=== PATIENT | male | born 1980 ===

== ENCOUNTER 2016-09-21 01:02 | Emergency (ER) | payer SELFPAY ==
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
[2016-09-21 06:12] VITALS: BP 124/72; PULSE 89; RESP 16; TEMP 97.7; O2SAT 97
== END 2016-09-21 06:12 | disposition home or self-care (01) ==
LOC: C.ER 01:02
DX: F10.129 Alcohol abuse with intoxication, unspecified (principal); Y90.9 Presence of alcohol in blood, level not specified